=== PATIENT | female | born 1980 | race Caucasian/White ===

== ENCOUNTER 2020-12-25 19:13 | Emergency (ER) | payer OTHER ==
[2020-12-25] MEDS ORDERED: KETOROLAC TROMETHAMINE 60 MG/2 ML VIAL IM ONE (19:30)
[2020-12-25] MEDS ORDERED: diazePAM 5 MG TABLET PO ONE (19:30)
[2020-12-25] MEDS ORDERED: KETOROLAC TROMETHAMINE 60 MG/2 ML VIAL ONE (19:33)
[2020-12-25] MEDS ORDERED: diazePAM 5 MG TABLET ONE (19:33)
[2020-12-25 19:45] VITALS: BP 133/83; PULSE 79; TEMP 99.2; BMI 22.4
== END 2020-12-25 19:59 | disposition home or self-care (01) ==
LOC: FER 19:13
PROC: 3E0233Z Introduction of Anti-inflammatory into Muscle, Percutaneous Approach (ICD-10-PCS; principal; 2020-12-25)
DX: M62.838 Other muscle spasm (principal)
CPT/HCPCS: 99283-25